=== PATIENT | female | born 1955 | race Two or more races ===

== ENCOUNTER 2023-05-29 13:22 | Outpatient (CLI) | payer OTHER ==
[~2023-05-29 13:22] MED LIST: PRINIVIL10 MG
== END 2023-05-29 13:27 | disposition home or self-care (01) ==
LOC: RAD 13:22
PROVIDERS: ATTEND Physical Medicine & Rehabilitation
DX: M79.672 Pain in left foot (principal)

== ENCOUNTER 2023-08-16 10:55 | Outpatient (CLI) | payer OTHER | END 2023-08-16 10:59 | disposition home or self-care (01) | LOC: RAD 10:55 | PROVIDERS: ATTEND Orthopaedic Surgery | DX: M25.572 Pain in left ankle and joints of left foot (principal) ==